=== PATIENT | female | born 1970 | race Caucasian/White ===

== ENCOUNTER 2019-11-05 11:49 | Outpatient (CLI) | payer OTHER, SELFPAY ==
--- NOTE | ~2019-11-05 | MMUS_ITS ---
EXAMINATION: MM diagnostic cassi BI w korina, US breast RT limited HISTORY: Follow-up for probably benign right breast masses TECHNIQUE: Craniocaudal, mediolateral, and mediolateral oblique 3-D tomosynthesis images of the breas ts were performed and synthetic 2-D images were generated. Spot compression views of the right breast are also obtained. CAD analysis was submitted and interpreted. High resolution limited right breast ultrasound was performed. COMPARISON: 10/07/2018, 09/16/2018, 11/08/2016 BREAST PARENCHYMAL COMPOSITION: The breasts are heterogeneously dense, which may obscure small masses . FINDINGS: MAMMOGRAPHIC FINDINGS: Right breast: An 8 mm obscured equal density mass is again seen in the middle third of the central br east 5 cm from the nipple which is not significantly changed. No suspicious calcification or architec tural distortion are identified. Left breast: There is no evidence of suspicious mass, calcification, or architectural distortion to suggest malignancy. There has been no suspicious interval change. ULTRASOUND: Limited ultrasound of the lower outer breast demonstrates multiple anechoic and hypoechoic, circumscr ibed, parallel masses with no posterior features or internal vascularity. Some are identified on the prior examination and none demonstrate suspicious sonographic features or suspicious interval change. IMPRESSION: 1. Probably benign right breast masses and no mammographic evidence of malignancy in the left breast. 2. Given one year of interval stability, recommend 12 month followup right diagnostic mammogram and u ltrasound. BI-RADS category 3, probably benign findings. Reviewed, dictated and finalized at location A. AID IMPRESSION: 1. Probably benign right breast masses and no mammographic evidence of malignan cy in the left breast. 2. Given one year of interval stability, recommend 12 month followup right diag nostic mammogram and ultrasound. BI-RADS category 3, probably benign findings.
== END 2019-11-05 11:50 | disposition home or self-care (01) ==
PROVIDERS: Visit Provider Nurse Practitioner
DX: R92.8 Other abnormal and inconclusive findings on diagnostic imaging of breast (principal)
CPT/HCPCS: 76642; 77062; 77066; G0279

== ENCOUNTER 2021-12-12 11:04 | Outpatient (CLI) | payer BC, SELFPAY ==
[2021-12-12 11:27] LABS: Hematocrit 41.5 % (37.0-47.0); Hemoglobin 13.7 g/dL (12.0-15.0); Mean Corpuscular Hemoglobin 30.3 pg (26-34); Mean Corpuscular Volume 91.8 fl (80-100); Mean Platelet Volume 11.2 fl (7.4-10.4); Platelet Count Result 164 k/mm3 (150-375); Red Blood Count 4.52 M/mm3 (4.2-5.4); Red Cell Distribution Width 13.5 % (11.5-14.5); White Blood Count 5.5 K/mm3 (4.5-10.0)
[2021-12-12 11:37] LABS: Alanine Aminotransferase 16 U/L (4-35); Albumin Level 4.7 g/dL (3.5-5.1); Alkaline Phosphatase 97 U/L (38-126); Anion Gap 10 mmol/L (8-16); Aspartate Amino Transferase 23 U/L (14-36); Bilirubin,Total 0.5 mg/dL (0.2-1.3); Blood Urea Nitrogen 13 mg/dL (7-17); Calcium 9.3 mg/dL (8.4-10.2); Carbon Dioxide 24 mmol/L (22-30); Chloride 105 mmol/L (98-107); Cholesterol 167 mg/dL (0-200); Estimated Glomerular Filt Rate > 60; Glucose 102 mg/dL (65-110); HDL Direct 44 mg/dL; Sodium 139 mmol/L (137-145); Triglycerides 130 mg/dL (<150)
[2021-12-12 11:39] LABS: Hemoglobin A1C 4.7 % (<5.7)
[2021-12-12 11:48] LABS: LDL Cholesterol Direct 91 mg/dL
[2021-12-12 12:15] LABS: Vitamin D 25 Hydroxy 33.2 ng/mL
== END 2021-12-12 11:05 | disposition home or self-care (01) ==
LOC: ANHLAB 11:07
PROVIDERS: Visit Provider Obstetrics & Gynecology Gynecology
DX: E55.9 Vitamin D deficiency, unspecified (principal)
CPT/HCPCS: 36415; 80053; 80061; 82306; 83036; 84443; 85027

== ENCOUNTER 2021-12-22 13:38 | Outpatient (CLI) | payer BC, SELFPAY ==
--- NOTE | ~2021-12-22 | MMUS_ITS ---
EXAMINATION: MM diagnostic cassi BI w korina, US breast RT limited HISTORY: Follow-up right breast masses TECHNIQUE: Additional 3-D tomosynthesis images of the breasts were performed and synthetic 2-D images were generated. CAD analysis was submitted and interpreted. High resolution Limited right breast ult rasound was performed. COMPARISON: Comparison to multiple prior studies sequentially, with oldest reviewed study dated 03/2014. BREAST PARENCHYMAL COMPOSITION: Breast composed of scattered areas of fibroglandular density FINDINGS: MAMMOGRAPHIC FINDINGS: There are no suspicious masses, calcifications or architectural distortion in either breast to sugges t malignancy. ULTRASOUND: Limited right breast ultrasound: At 6:00 in the periareolar location there is a 5 mm cyst. At 9:00 ne ar the nipple there is a 4 mm cyst. No suspicious masses to suggest malignancy. IMPRESSION: 1. No evidence for malignancy in the right breast. Benign findings. 2. Routine yearly screening mammogram and regular clinical breast examination are recommended. BI-RADS Category 2: Benign finding(s). Reviewed, dictated and finalized at location A. IMPRESSION: 1. No evidence for malignancy in the right breast. Benign findings. 2. Routine yearly screening mammogram and regular clinical breast examination a re recommended. BI-RADS Category 2: Benign finding(s).
== END 2021-12-22 13:39 | disposition home or self-care (01) ==
LOC: ANHIMG 13:42
PROVIDERS: Visit Provider Obstetrics & Gynecology Gynecology
DX: R92.8 Other abnormal and inconclusive findings on diagnostic imaging of breast (principal)
CPT/HCPCS: 76642; 77062; 77066; G0279

== ENCOUNTER 2022-01-15 09:33 | Outpatient (CLI) | payer BC, SELFPAY ==
--- NOTE | ~2022-01-15 | US_ITS ---
EXAMINATION: US pelvic complete w TV DATE: 01/15/2022 10:46 INDICATION: Enlarged uterus. Menorrhagia. TECHNIQUE: Multiple transabdominal and transvaginal sonographic images of the pelvis were obtained. COMPARISON: Pelvis ultrasound 11/08/2016 FINDINGS: TRANSABDOMINAL ULTRASOUND: The uterus measures 13.0 x 6.0 x 7.8 cm. There is no free fluid in the pelvis. TRANSVAGINAL ULTRASOUND: The endometrial complex measures 4 mm in thickness. There is a nabothian cyst in the cervix. The righ t ovary measures 1.9 x 1.8 x 1.4 cm. The left ovary measures 2.4 x 1.8 x 1.3 cm. There is normal vasc ular flow in the ovaries. IMPRESSION: 1. No etiology for the patient's symptoms. Reviewed, dictated and finalized at location B.
== END 2022-01-15 09:34 | disposition home or self-care (01) ==
PROVIDERS: PCP Physician Assistant; Visit Provider Obstetrics & Gynecology Gynecology
DX: N92.0 Excessive and frequent menstruation with regular cycle (principal); N85.2 Hypertrophy of uterus
CPT/HCPCS: 76830; 76856

== ENCOUNTER 2024-03-02 07:12 | Outpatient (CLI) | payer BC, SELFPAY ==
--- NOTE | ~2024-03-02 | MM_ITS ---
EXAMINATION: MM screening cassi BI w korina HISTORY: Screening TECHNIQUE: Craniocaudal and mediolateral oblique 3-D tomosynthesis images were obtained and synthetic 2-D images were generated. CAD analysis was submitted and interpreted. COMPARISON: Comparison to multiple prior studies sequentially, with oldest reviewed study dated 04/20. BREAST PARENCHYMAL COMPOSITION: Not dense: There are scattered areas of fibroglandular density. FINDINGS: There is no evidence of suspicious mass, calcification, or architectural distortion to sugg est malignancy in either breast. There has been no suspicious interval change. IMPRESSION: 1. No mammographic evidence of malignancy. 2. Recommend routine screening mammography in one year. BI-RADS Category 1: Negative Reviewed, dictated and finalized at location B.
== END 2024-03-02 07:13 | disposition home or self-care (01) ==
LOC: ANHIMG 07:15
PROVIDERS: PCP Physician Assistant; Visit Provider Obstetrics & Gynecology Gynecology
DX: Z12.31 Encounter for screening mammogram for malignant neoplasm of breast (principal)
CPT/HCPCS: 36415; 77063; 77067; 80061; 82306; 82607; 83036; 84439; 84443; 84480; 85027

== ENCOUNTER 2024-03-02 08:06 | Outpatient (CLI) | payer BC, SELFPAY ==
[2024-03-02 08:44] LABS: Hematocrit 42.8 % (37.0-47.0); Hemoglobin 14.2 g/dL (12.0-15.0); Mean Corpuscular HGB Conc 33.2 g/dl (32-36); Mean Corpuscular Hemoglobin 31.5 pg (26-34); Mean Corpuscular Volume 94.9 fl (80-100); Platelet Count Result 137 k/mm3 (150-375); Red Blood Count 4.51 M/mm3 (4.2-5.4)
[2024-03-02 09:18] LABS: Hemoglobin A1C 4.6 % (<5.7)
[2024-03-02 09:45] LABS: Vitamin D 25 Hydroxy 48.3 ng/mL
[2024-03-02 10:09] LABS: Cholesterol 158 mg/dL (0-200); HDL Direct 35 mg/dL; Triglycerides 137 mg/dL (<150)
[2024-03-02 10:20] LABS: LDL Cholesterol Direct 100 mg/dL
[2024-03-02 16:08] LABS: Total Triiodothyronine (T3) 1.51 NG/ML (0.97-1.69)
== END 2024-03-02 08:07 | disposition home or self-care (01) ==
LOC: ANHLAB 08:08
PROVIDERS: PCP Physician Assistant; Visit Provider Nurse Practitioner Women's Health
DX: Z01.419 Encounter for gynecological examination (general) (routine) without abnormal findings (principal); E55.9 Vitamin D deficiency, unspecified
CPT/HCPCS: 36415; 80061; 82306; 82607; 83036; 84439; 84443; 84480; 85027

== ENCOUNTER 2024-04-14 01:26 | Day surgery (SDC) | payer BC, SELFPAY ==
[2024-04-01 09:26] VITALS: BMI 32.6
[2024-04-14 09:12] VITALS: BP 109/75; PULSE 81; RESP 16; TEMP 36.1; O2SAT 97; BMI 32.3
[2024-04-14] MEDS: LACTATED RINGERS 1,000 ML 150 ML IV CONT (09:19)
--- NOTE | 2024-04-14 09:46 | WPDANESEPPF ---
Anes - Initial Pre Proc Eval Procedure: Operation Date: 04/14/24 10:30 Proposed Procedures p Screening Colonoscopy - Mario Youssef MD Date/Time: 04/14/24 09:46 Surgeon: Mario Youssef MD Pre Op Diagnosis: Neoplasm screening Patient Data Age: 54 Gender: F Height: 1.65 m Weight: 88.1 kg Last Vital Signs Temp 96.9 F L 04/14/24 09:12 Pulse 81 04/14/24 09:12 Resp 16 04/14/24 09:12 BP 109/75 04/14/24 09:12 Pulse Ox 97 04/14/24 09:12 O2 Del Method Room Air 04/14/24 09:12 Allergies Allergy/AdvReac Type Severity Reaction Status Date / Time No Known Allergies Verified 04/14/24 09:11 Home Medications Medication Instructions Recorded Confirmed Type levothyroxine 25 mcg capsule 25 mcg PO DAILY 04/01/24 04/14/24 History Patient hx anesthesia problems: none Family hx anesthesia problems: none Results Review: All pre-operative results and documents have been reviewed as part of the pre-operative evaluation. FOR[facility]LY [facility], [facility] Social History Social History Alcohol intake: current Drinks per week: 4 Living arrangements: with family Spiritual care concerns: No Anes - Eval Final PreProcedure Day of Procedure 04/14/24 09:46 Patient weight: overweight Heart: regular rate and rhythm Lungs: clear to auscultation Airway: Mallampati scale Neurological: alert and oriented Last oral intake: >/= 8 hours ASA classification: II Anesthetic plan: proceed Anesthesia type and monitoring: general GIVS and standard monitoring Results Review: All pre-operative results and documents have been reviewed as part of the pre-operative evaluation. Hypothyroidism, pt exercise w walking, exercise, no cp or sob. Informed Consent: The patient's anesthetic plan and its attendant risks and benefits were discussed with the patient/family/POA. Questions were solicited and answers provided to the satisfaction of the patient/family/POA.
--- NOTE | 2024-04-14 10:15 | PM.HPGS ---
History of Present Illness History of Present Illness Consent: Risks, benefits, and alternatives have been discussed and questions answered. Patient agrees to proceed with procedure. Chief complaint: Neoplasm screening Narrative: Hodan Johnson is a 54 year old female here for first screening colonoscopy Review of Systems Review of Systems: All systems reviewed & are unremarkable except as noted in HPI and below PMFSH Past Medical History Medical History (Updated 04/14/24 @ 10:15 by Mario Youssef MD) Colon cancer screening Social History Social History Alcohol intake: current Drinks per week: 4 Living arrangements: with family Spiritual care concerns: No Meds Home Medications and Allergies Home Medications Medication Instructions Recorded Confirmed Type levothyroxine 25 mcg capsule 25 mcg PO DAILY 04/01/24 04/14/24 History Allergies Allergy/AdvReac Type Severity Reaction Status Date / Time No Known Allergies Verified 04/14/24 09:11 Vital Signs Vital Signs - 24 hr 04/14/24 09:12 Temperature 96.9 F L Pulse Rate 81 Respiratory Rate 16 Blood Pressure 109/75 Pulse Oximetry 97 Oxygen Delivery Room Air Exam Const: General: comfortable and no acute distress HENMT: Face/Nose/Sinus: Normal nares present Eyes: General: appearance normal, both eyes and all related structures Neck: Neck: no JVD Resp: Auscultation: clear to auscultation bilaterally Cardio: Rate: regular rate Rhythm: regular rhythm GI: Inspection: non-distended GI Palp: Yes Soft to palpation Skin: General skin exam: normal color Neuro: General: gait normal Speech: normal speech Extrem: General: normal to inspection Psych: Mental Status: mental status grossly normal Assessment and Plan Assessment and plan (1) Colon cancer screening: Code(s): Z12.11 - Encounter for screening for malignant neoplasm of colon Status: Acute Assessment and Plan: colonoscopy
[2024-04-14 10:34] VITALS: BP 110/70; PULSE 86; RESP 28; O2SAT 97
[2024-04-14 10:44] VITALS: BP 108/81; PULSE 80; RESP 22; O2SAT 100
[2024-04-14 10:54] VITALS: BP 120/76; PULSE 75; RESP 21; O2SAT 99
== END 2024-04-14 11:04 | disposition home or self-care (01) ==
PROVIDERS: PCP Physician Assistant; Visit Provider Internal Medicine Gastroenterology
PROC: 0DJD8ZZ Inspection of Lower Intestinal Tract, Via Natural or Artificial Opening Endoscopic (ICD-10-PCS; CPT 45378; principal; 2024-04-14 10:30)
DX: Z12.11 Encounter for screening for malignant neoplasm of colon (principal); K64.8 Other hemorrhoids
CPT/HCPCS: 45378; J2704; J7120

== ENCOUNTER 2024-04-17 08:23 | Outpatient (CLI) | payer BC, SELFPAY ==
[2024-04-17 09:17] LABS: Basophils Percent Auto 0.4 % (0.2-1.2); Eosinophils Absolute Auto 0.2 K/mm3 (0-0.3); Eosinophils Percent Auto 2.3 % (0-4.4); Hematocrit 42.3 % (37.0-47.0); Hemoglobin 13.9 g/dL (12.0-15.0); Immature Granulocyte Absolute 0.01 K/mm3 (0.00-0.031); Immature Granulocyte Percent A 0.1 % (0-0.5); Lymphocytes Absolute Auto 2.57 K/mm3 (0.9-3.2); Lymphocytes Percent Auto 36.1 % (18.3-44.2); Mean Corpuscular HGB Conc 32.9 g/dl (32-36); Mean Corpuscular Volume 94.4 fl (80-100); Mean Platelet Volume 12.1 fl (7.4-10.4); Monocytes Absolute Auto 0.6 K/mm3 (0.1-0.6); Monocytes Percent Auto 8.3 % (2.6-8.5); Neutrophils Absolute Auto 3.8 K/mm3 (1.3-6.7); Neutrophils Percent Auto 52.8 % (45.5-73.1); Platelet Count Result 170 k/mm3 (150-375); Red Blood Count 4.48 M/mm3 (4.2-5.4); Red Cell Distribution Width 13.6 % (11.5-14.5); White Blood Count 7.1 K/mm3 (4.5-10.0)
[2024-04-17 09:58] LABS: Free T4 Free Thyroxine 1.06 ng/mL (0.78-2.19)
== END 2024-04-17 08:24 | disposition home or self-care (01) ==
PROVIDERS: PCP Physician Assistant; Referring Provider Physician Assistant; Visit Provider Obstetrics & Gynecology Gynecology
DX: E03.9 Hypothyroidism, unspecified (principal); R79.89 Other specified abnormal findings of blood chemistry
CPT/HCPCS: 36415; 84439; 84443; 85025

== ENCOUNTER 2025-05-03 08:48 | Outpatient (CLI) | payer BC, SELFPAY ==
--- OUTSIDE RECORDS SUMMARY | 2025-05-03 09:05 | XMS_ITS | Referral Summary ---
Author Organization [facility] [facility] Address [address] [place] [address] Care Team Providers Care Ux Ui Designer Name Role Phone Sandi Sierra Primary Care Provider [phone]- [phone] Encounters Date Type Department Care Team Description 04/29/2025 9:00 AM CDT Office Visit [facility] Family Medicine [address] [facility] [address] [place] [address] Sandi Sierra PA BMI 36.0-36.9,adult (Primary Dx); Obesity (BMI 30-39.9); Immunity status testing; Low serum vitamin B12; Acquired hypothyroidism; Diabetes mellitus screening; Lipid screening; Breast cancer screening by mammogram from Last 3 Months Allergies No known active allergies Medications levothyroxine (SYNTHROID) 25 mcg tablet Take 1 tablet (25 mcg total) by mouth daily 90 tablet 1 11/30/2024 Active Active Problems Problem Noted Date Diagnosed Date Acquired hypothyroidism 04/26/2024 Assessment & Plan (04/26/2024 1:09 AM CDT): Continue levothyroxine. Monitor labs. Vitamin D deficiency 04/26/2024 Assessment & Plan (04/26/2024 1:09 AM CDT): Supplement Low serum vitamin B12 04/26/2024 Assessment & Plan (04/26/2024 1:09 AM CDT): Supplement Annual physical exam 01/07/2022 Assessment & Plan (04/26/2024 1:09 AM CDT): Encouraged healthy lifestyle, good nutrition and exercise. Encouraged Calcium and Vitamin D and weight bearing exercise for bone health. Reviewed immunizations Reviewed age appropirate screenings. Assessment & Plan (01/07/2022 11:31 PM CDT): Encouraged healthy lifestyle, good nutrition and exercise. Encouraged Calcium and Vitamin D and weight bearing exercise for bone health. Reviewed immunizations Reviewed age appropirate screenings. Obesity (BMI 30-39.9) 12/26/2021 Assessment & Plan (04/29/2025 9:08 AM CDT): Discussed the patient's BMI. The BMI is above average. BMI management plan is completed. BMI Follow-up includes: nutrition counseling, exercise counseling and education provided. Assessment & Plan (04/26/2024 1:09 AM CDT): Discussed the patient's BMI. The BMI is above average. BMI management plan is completed. BMI Follow-up includes: nutrition counseling, exercise counseling and education provided. Assessment & Plan (12/26/2021 2:19 PM CDT): Obesity is unchanged. Discussed the patient's BMI. The BMI is above average. BMI management plan is completed. BMI Follow-up includes: nutrition counseling, exercise counseling and education provided. BMI 36.0-36.9,adult 12/26/2021 Assessment & Plan (04/29/2025 9:08 AM CDT): Discussed the patient's BMI. The BMI is above average. BMI management plan is completed. BMI Follow-up includes: nutrition counseling, exercise counseling and education provided. Assessment & Plan (04/26/2024 1:09 AM CDT): Discussed the patient's BMI. The BMI is above average. BMI management plan is completed. BMI Follow-up includes: nutrition counseling, exercise counseling and education provided. Assessment & Plan (12/26/2021 2:19 PM CDT): Obesity is unchanged. Discussed the patient's BMI. The BMI is above average. BMI management plan is completed. BMI Follow-up includes: nutrition counseling, exercise counseling and education provided. Resolved Problems Problem Noted Date Diagnosed Date Resolved Date Colon cancer screening 01/07/202204/26 Assessment & Plan (01/07/2022 11:37 PM CDT): Due for screening colonoscopy Refer to Dr. Clarke Need for Tdap vaccination 01/07/2022 Assessment & Plan (01/07/2022 11:38 PM CDT): Updated in office today Immunizations Immunization Administration Dates Next Due Influenza, Unspecified 09/30/2024(Deferr ed: Patient Refused),09/30/2023(Deferred: Patient Refused) Tdap 01/09/2022 Social History Tobacco Use Types Packs/Day Years Used Date Smoking Tobacco: Never Smokeless Tobacco: Never Tobacco Cessation:Counseling Given: Not Answered AUDIT-C Answer Date Recorded Q1: How often do you have a drink containing alc ohol? Monthly or less 04/29/2025 Q2: How many drinks containi ng alcohol do you have on a typical day when you are drinking? 1 or 2 04/29/2025 Q3: How often do you have si x or more drinks on one occasion? 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 Gender Identity Not on file Sexual Orientation Not on file Last Filed Vital Signs Vital Sign Reading Time Taken Comments Blood Pressure 122/76 04/29/2025 9:03 AM CDT Pulse 64 04/29/2025 9:03 AM CDT Temperature 36.4 C (97.6 F) 04/29/2025 9:03 AM CDT Respiratory Rate 18 06/30/2024 6:37 PM CDT Oxygen Saturation 98% 04/29/2025 9:03 AM CDT Inhaled Oxygen Concentration - - Weight 98.4 kg (217 lb) 04/29/2025 9:03 AM CDT Height 163.8 cm (5' 4.5) 04/29/2025 9:03 AM CDT Body Mass Index 36.67 04/29/2025 9:03 AM CDT Plan of Treatment Not on file Procedures Procedure Name Priority Date/Time Associated Diagnosis Comments COLONOSCOPY Routine 04/14/2024 11:24 AM CDT MAMMOGRAPHY Routine 03/02/2024 11:51 AM CDT from Last 3 Months or Most Recently Relevant to Health Maintenance Results * COLONOSCOPY (04/14/2024 11:24 AM CDT) Scribed Colonoscopy Normal Historical Provider HEALTH MAINTENANCE Edited Result - Final * MAMMOGRAPHY (03/02/2024 11:51 AM CDT) Mammography Normal Historical Provider HEALTH MAINTENANCE Edited Result - Final from Last 3 Months or Most Recently Relevant to Health Maintenance Insurance [employer] [place] [employer] [place] Care Teams Ux Ui Designer Relationship Specialty Start Date End Date Sandi Sierra PA [address] [facility] [address] [place] [address] PCP - General Internal Medicine 12/26/21
--- OUTSIDE RECORDS SUMMARY | 2025-05-03 09:05 | XMS_ITS | Clinical Summary ---
Author Organization [facility] Address [address] [facility] [place] [address] Care Team Providers Care Alteration Manager Name Role Phone Unavailable Primary Care Provider Unavailabl e Source Comments [facility],non-owned Affiliates and Associated Physician Practices is amultiple site organization consisting of ambulatory clinics and hospital sitesin [place], [place], [place] and [place]. This disclosure is being madepursuant to the Care Everywhere program and may not contain all information available regarding this patient. Last updated 18.[facility] Allergies No known active allergies Medications * Be aware that medications may not be up to date on this document. Alwaysverify current medications with the patient. rx 1 60-1 MG tablet Take 1 Tab by mouth daily. 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 Gender Identity Not on file Sexual Orientation Not on file Plan of Treatment Health Maintenance Due Date Last Done Comments COLOGUARD (AGES 45-75) - COL ON CA SCREENING 1972 COLON MONITORING 1972 COLONOSCOPY - COLON CA SCREENING 1972 CT COLONOGRAPHY - COLON CA SCREENING 1972 Colorectal Cancer Screening 1972 FIT - COLON CA SCREENING 1972 FLEX SIG - COLON CA SCREENING 1972 LIPID TESTING 1972 MAMMOGRAM 1972 HIV SCREENING 1987 HEPATITIS C SCREENING 04/03/1990 DTAP/TDAP/TD VACCINES (1 - Tdap) 1991 HEPATITIS B VACCINE (1 of 3 - 19+ 3-dose series) 1991 PAP SMEAR 1993 PNEUMOCOCCAL VACCINE 50+ (1 of 1 - PCV) 2022 ZOSTER VACCINE (1 of 2) 2022 COVID-19 VACCINE (1 - 2023-2 5 season) 2024 DEPRESSION SCREENING 09/30/2024 INFLUENZA VACCINE (#1) 2025 HIB VACCINE Aged Out No longer eligi ble based on patient's age to complete this topic HPV VACCINE Aged Out No longer eligi ble based on patient's age to complete this topic MENINGOCOCCAL (Group B) VACC INE SHARED DECISION-MAKING Aged Out No longer eligibl e based on patient's age to complete this topic MENINGOCOCCAL GROUPS A/C/Y/W VACCINE Aged Out No longer eligible b ased on patient's age to complete this topic Insurance * Guarantor: HODNA SUAREZ Type Relation to Patient Date of Phone Billing Address Personal/Family [address] [place] [address] [place] [address] SELF PAY NO INSURANCE Member Subscriber Plan / Payer (Ef fective for All Dates) Name:Hodan Suarez Member ID:Not on file Relation to Subscriber:Not on file Name:HODAN SUAREZ Subscriber ID:Not on file (Home) Address: [address] [place] [address] [place] [address] Payer ID:Not on file Group ID:Not on file Type:Self Pay Address: [facility] Member Subscriber Plan / Payer (Ef fective 2023-Present) Name:Hodan Suarez Relation to Subscriber:Self Name:Hodan Suarez Payer ID:[id number] (NAIC) Type:PPO Address: [address] [place] [address] * Guarantor: HODAN SUAREZ Account Type Relation to Patient Date of Phone Billing Address Personal/Family [address] [place] [address] SELF PAY NO INSURANCE Member Subscriber Plan / Payer (Ef fective for All Dates) Name:Hodan Suarez Member ID:Not on file Relation to Subscriber:Not on file Name:HODAN SUAREZ Subscriber ID:Not on file (Home) Address: [address] [place] [address] Payer ID:Not on file Group ID:Not on file Type:Self Pay Address: [place], [place] Member Subscriber Plan / Payer (Ef fective 2023-Present) Name:Hodan Suarez Relation to Subscriber:Self Name:Hodan Suarez Payer ID:[id number] (NAIC) Type:PPO Address: [address] [place] [address] * Guarantor: HODAN SUAREZ Account Type Relation to Patient Date of Phone Billing Address Personal/Family [address] [place] [address] SELF PAY NO INSURANCE Member Subscriber Plan / Payer (Ef fective for All Dates) Name:Hodan Suarez Member ID:Not on file Relation to Subscriber:Not on file Name:HODAN SUAREZ Subscriber ID:Not on file (Home) Address: [address] [place] [address] Payer ID:Not on file Group ID:Not on file Type:Self Pay Address: [place], [place]
--- OUTSIDE RECORDS SUMMARY | 2025-05-03 09:05 | XMS_ITS | Clinical Summary ---
Author Organization [facility] Address [address] [place] [address] Care Team Providers Care Offset Lithographic Press Operator Name Role Phone Sandi Sierra Primary Care Provider +1- [phone] Allergies No known active allergies Medications levothyroxine [...] 11:38 PM CDT): Updated in office today Encounters Date Type Department Care Team Description 04/29/2025 9:00 AM CDT Office Visit [facility] Family Medicine [address] [address] Sandi Sierra PA BMI 36.0-36.9,adult (Primary Dx); Obesity (BMI 30-39.9); Immunity status testing; Low serum vitamin B12; Acquired hypothyroidism; Diabetes mellitus screening; Lipid screening; Breast cancer screening by mammogram from Last 3 Months Immunizations Immunization Administration Dates Next Due Influenza, Unspecified 09/30/2024(Deferr ed: Patient Refused),09/30/2023(Deferred: Patient Refused) Tdap 01/09/2022 Surgical History Surgery Date Site/Laterality Comments TUBAL LIGATION Family History Medical History Relation Name Comments Hypertension Father No Known Problems Mother Relation Name Status Comments Father Alive Mother Alive Social History Tobacco Use Types Packs/Day Years [...] on file 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 Gender Identity Not on file Sexual Orientation Not on file Obstetrics History Last Filed Vital Signs Vital Sign Reading [...] 04/29/2025 9:03 AM CDT Plan of Treatment Health Maintenance Due Date Last Done Comments Cervical Cancer Screening 1972 Hepatitis C Screening 1972 Hepatitis B Screening 1990 Zoster Vaccine (1 of 2) 2022 Covid-19 Vaccine (2023-2 5 season) 2024 08/31/2021, 12/13/2020, 11/09/2020 Breast Cancer Screening-Mammogram 03/02/2025 03/02/2024, 12/22/2021 Regular Well Visit/Exam 18-64 04/20/2025, 12/26/2021 Influenza Vaccine (#1) 2025 Depression Screening 04/29/2026 04/29/2025, 04/20/2024, 12/26/2021 DTaP/Tdap/Td Vaccine (2 - Td or Tdap) 01/10/2032 01/09/2022 Colon Cancer Screening-Colonoscopy 04/14/2034 04/14/2024 Pneumococcal vaccine <65 Aged Out No longer eligible based on patient's age to complete this topic Procedures Procedure Name Priority Date/Time Associated Diagnosis Comments COLONOSCOPY Routine 04/14/2024 11:24 AM CDT MAMMOGRAPHY Routine 03/02/2024 11:51 AM CDT from Last 3 Months or Most Recently Relevant to Health Maintenance Results * COLONOSCOPY (04/14/2024 11:24 AM CDT) Scribed Colonoscopy Normal us Historical Provider HEALTH MAINTENANCE Edited Result - Final * MAMMOGRAPHY (03/02/2024 11:51 AM CDT) Mammography Normal us Historical Provider HEALTH MAINTENANCE Edited Result - Final from Last 3 Months or Most Recently Relevant to Health Maintenance Insurance [employer] [place] [employer] [place] Care Teams Offset Lithographic Press Operator Relationship Specialty Start Date End Date Sandi Sierra PA [address] [facility] [address] [place] [address] PCP - General Internal Medicine 12/26/21
--- OUTSIDE RECORDS SUMMARY | 2025-05-03 09:05 | XMS_ITS | Clinical Summary ---
Author Organization [facility] Address [address] [place] [id number] Care Team Providers Care Fundraising Manager Name Role Phone Unavailable Primary Care Provider Unavailabl e Social History Tobacco Use Types Packs/Day Years Used Date Smoking Tobacco: Never Assessed Comments Unknown Sex and Gender Information Value Date Recorded Sex Assigned at Not on file Legal Sex Female 4:50 PM CDT Gender Identity Not on file Sexual Orientation Not on file Plan of Treatment Health Maintenance Due Date Last Done Comments Cervical Cancer Screening Pa p Smear (Age 30 to 64) Every 3 Years 1972 Colorectal Cancer Screening Colonoscopy (10 Years) 1972 Annual Physical 1975 Hepatitis C 1990 DTaP, Tdap and Td Vaccines ( 1 - Tdap) 1991 Hepatitis B Vaccines (1 of 3 - 19+ 3-dose series) 1991 Cervical Cancer Screening Pa p with HPV Testing (Age 30 to 64) Every 5 Years 2002 Cervical Cancer Screening with HPV 2002 Mammogram Screening 2012 Pneumococcal Vaccine: 50+ Ye ars (1 of 1 - PCV) 2022 Zoster Vaccines (1 of 2) 2022 COVID-19 Vaccine (2023-2 5 season) 2024 Meningococcal B Vaccine Aged Out No l onger eligible based on patient's age to complete this topic Meningococcal Vaccine Aged Out No onofre gaviota eligible based on patient's age to complete this topic RSV Immunizations Under 20 Months Aged Out No longer eligible based on patient's age to complete this topic
[2025-05-03 09:21] LABS: Hematocrit 44.2 % (37.0-47.0); Hemoglobin 14.3 g/dL (12.0-15.0); Immature Granulocyte Percent A 0.4 % (0-0.5); Lymphocytes Absolute Auto 1.88 K/mm3 (0.9-3.2); Mean Corpuscular HGB Conc 32.4 g/dl (32-36); Mean Corpuscular Hemoglobin 30.2 pg (26-34); Mean Corpuscular Volume 93.2 fl (80-100); Nucleated Red Blood Cells Absolute Auto 0.000 K/mm3 (0.0-0.012); Nucleated Red Blood Cells Perc 0.0 % (0.0-0.2); Platelet Count Result 152 k/mm3 (150-375); Red Blood Count 4.74 M/mm3 (4.2-5.4); White Blood Count 5.4 K/mm3 (4.5-10.0)
[2025-05-03 09:40] LABS: Alanine Aminotransferase 19 U/L (6-35); Albumin Level 4.3 g/dL (3.5-5.1); Alkaline Phosphatase 82 U/L (38-126); Anion Gap 10 mmol/L (4-12); Aspartate Amino Transferase 25 U/L (14-36); Bilirubin,Total 0.7 mg/dL (0.2-1.3); Blood Urea Nitrogen 15 mg/dL (7-17); Calcium 9.8 mg/dL (8.4-10.2); Carbon Dioxide 26 mmol/L (22-30); Chloride 105 mmol/L (98-107); Cholesterol 189 mg/dL (0-200); Estimated Glomerular Filt Rate > 60; Glucose 95 mg/dL (65-110); HDL Direct 41 mg/dL; Potassium 4.0 mmol/L (3.4-5.0); Sodium 141 mmol/L (137-145); Total Protein 7.6 g/dL (6.3-8.2); Triglycerides 133 mg/dL (<150)
[2025-05-03 09:49] LABS: Hemoglobin A1C 4.8 % (<5.7)
[2025-05-03 10:16] LABS: Thyroid Stimulating Hormone 5.490 uIU/mL (0.465-4.680)
[2025-05-03 10:37] LABS: Vitamin B12 > 1000.0 pg/mL (239-931)
[2025-05-04 07:08] LABS: Measles Antibodies, IgG 129.0 AU/mL (Immune >16.4)
== END 2025-05-03 08:49 | disposition home or self-care (01) ==
PROVIDERS: PCP Physician Assistant; Visit Provider Physician Assistant
DX: Z12.31 Encounter for screening mammogram for malignant neoplasm of breast (principal); Z13.1 Encounter for screening for diabetes mellitus; Z13.220 Encounter for screening for lipoid disorders; Z01.84 Encounter for antibody response examination; E03.9 Hypothyroidism, unspecified
CPT/HCPCS: 36415; 80053; 80061; 82607; 83036; 84443; 85025; 86735; 86762; 86765

== ENCOUNTER 2025-06-26 09:24 | Outpatient (CLI) | payer BC, SELFPAY ==
[2025-06-26 10:40] LABS: Thyroid Stimulating Hormone 2.730 uIU/mL (0.465-4.680)
== END 2025-06-26 09:25 | disposition home or self-care (01) ==
LOC: ANHLAB 09:28
PROVIDERS: PCP Physician Assistant; Visit Provider Physician Assistant
DX: E03.9 Hypothyroidism, unspecified (principal)
CPT/HCPCS: 36415; 84443